=== PATIENT | female | born 1975 | race Caucasian/White ===

== ENCOUNTER 2016-10-09 | Outpatient (CLI) | payer OTHER | END 2016-10-09 13:49 | disposition critical access hospital (66) | CPT/HCPCS: A0425; A0429 ==

== ENCOUNTER 2016-10-09 14:02 | Inpatient (IN) | payer OTHER ==
--- NOTE | 2016-10-09 14:23 | ED Physician Documentation ---
PD HPI LOWER EXT INJURY - Stated complaint Stated Complaint: R LEG PX - Chief complaint Chief Complaint: Trauma Ext - History obtained from History obtained from: Patient - History of Present Illness PD HPI LOW EXT INJURY LOCATION: Right, Lower leg Type of injury: Fall (running on floor with socks and slipped, falling forward and struck/twisted right lower leg. Pain and swelling of it. Unable to move leg nor attempt to stand.) Where injury occurred: Home Timing - onset: Today (just SOFT HAT BINDER) Timing - duration: Hours (1) Timing - details: Abrupt onset, Still present Improved by: Rest, Immobilization (splinted on the way) Worsened by: Moving, Palpating Associated symptoms: Swelling. No: Weakness, Numbness Similar symptoms before: Has not had sx before Recently seen: Not recently seen Review of Systems Constitutional: denies: Fever, Chills Throat: denies: Sore throat Cardiac: denies: Chest pain / pressure Respiratory: denies: Dyspnea, Cough GI: denies: Nausea, Vomiting, Diarrhea Skin: denies: Abrasion (s), Laceration (s) Neurologic: denies: Headache, Head injury Psychiatric: denies: Anxiety Endocrine: denies: Weight loss, Easy bruising / bleeding Immunocompromised: denies: Immunocompromised PD PAST MEDICAL HISTORY - Past Medical History Cardiovascular: None Respiratory: None Neuro: None Endocrine/Autoimmune: None - Present Medications Home Medications: Ambulatory Orders Medication Instructions Recorded Confirmed Naproxen Sodium 0 mg PO DAILY 10/09/16 10/09/16 Venlafaxine HCl [Effexor Xr] 75 mg PO DAILY 10/09/16 10/09/16 - Allergies Allergies/Adverse Reactions: Allergies Allergy/AdvReac Type Severity Reaction Status Date / Time No Known Drug Allergies Allergy Verified 10/09/16 14:12 PD ED PE NORMAL - Vitals Vital signs reviewed: Yes - General General: Alert and oriented X 3, Well developed/nourished, Other (seems comfortable enough initially and declined pain meds. ) - HEENT HEENT: Atraumatic - Neck Neck: No bony TTP - Cardiac Cardiac: RRR, No murmur - Respiratory Respiratory: Clear bilaterally - Abdomen Abdomen: Soft, Non tender - Derm Derm: Normal color, Warm and dry - Extremities Extremities: Other (right lower leg with swelling and marked tenderness mid shaft. Normal sensation in foot, color and cap refill. Able to wiggle toes okay. Other leg and both hands without tenderness. ) - Neuro Neuro: Alert and oriented X 3, No motor deficit, No sensory deficit, Normal speech Results - Vitals Vitals: Vital Signs - 24 hr 10/09/16 10/09/16 14:10 16:33 Temperature 36.7 C 36.5 C Heart Rate 90 95 Respiratory 16 17 Rate Blood Pressure 130/84 H 130/77 O2 Saturation 100 100 Oxygen O2 Source Room air - Rads (name of study) tib fib right Radiology: Prelim report reviewed, EMP read contemporaneously (midshaft tib/fib fractures. ) PD MEDICAL DECISION MAKING - ED course Complexity details: considered differential, d/w patient (She initially declined IV nor IM meds and just wanted PO. Starting for xray, slight movement was hurting and she agreed to IM meds. She still declined IV. ), d/w client relationship consultant (Dr. Parekh, who came to ED and splinted the patient. Will admit for surgery in AM. ) Departure - Departure Disposition: 66 [facility] DC/Xfer Clinical Impression: Fall from slip, trip, or stumble Qualifiers: Encounter type: initial encounter Qualified Code(s): W01.0XXA - Fall on same level from slipping, tripping and stumbling without subsequent striking against object, initial encounter Fracture of tibia with fibula, closed Qualifiers: Encounter type: initial encounter Laterality: right Qualified Code(s): S82.201A - Unspecified fracture of shaft of right tibia, initial encounter for closed fracture Discharge Date/Time: 10/09/16 17:28
[2016-10-09] MEDS ORDERED: HYDROcod/ACETAM 5/325 MG TABLET PO STA (14:34)
[2016-10-09] MEDS ORDERED: IBUPROFEN 600 MG TABLET PO STA (14:34)
[2016-10-09] MEDS ORDERED: IBUPROFEN 600 MG TABLET PO ONE (14:42)
[2016-10-09] MEDS ORDERED: HYDROcod/ACETAM 5/325 MG TABLET ONE (14:42)
[2016-10-09] MEDS ORDERED: HYDROmorphone 1 MG/ML SYRINGE IM STA (14:53)
[2016-10-09] MEDS ORDERED: ONDANSETRON ODT 4 MG TABLET TL STA (14:53)
[2016-10-09] MEDS ORDERED: HYDROmorphone 1 MG/ML SYRINGE ONE (15:20)
[2016-10-09] MEDS ORDERED: LIDOCAINE 2% 10 ML MDV ONE (15:33)
[2016-10-09] MEDS ORDERED: BUPIVACAINE 0.5% PF 30 ML VIAL ONE (15:37)
[2016-10-09] MEDS ORDERED: ONDANSETRON ODT 4 MG TABLET ONE (15:50)
--- NOTE | 2016-10-09 16:30 | XRAY Preliminary Report ---
Exam: XR Tib/Fib RT IMPRESSION: Mildly displaced oblique shaft fractures of fibula and tibia, with minimal lateral angula tion of the distal aspect. [facility] SITE ID: [id number]
--- NOTE | 2016-10-09 16:31 | XRAY Report ---
EXAM: RIGHT TIBIA/FIBULA RADIOGRAPHY EXAM DATE: 10/09/2016 04:10 PM. CLINICAL HISTORY: Fall, with mid right tibial injury. COMPARISON: None. TECHNIQUE: 2 views. FINDINGS: Bones: Oblique mildly displaced proximal to mid fibular shaft fracture and mid to distal tibial shaft fracture , with minimal lateral angulation of the distal aspect. Joints: The visualized knee and ankle joints are normal. Soft Tissues: Detail limited by cast. IMPRESSION: Mildly displaced oblique shaft fractures of fibula and tibia, with minimal lateral angula tion of the distal aspect. [facility] Referring Provider Line: [phone] SITE ID: [id number]
[2016-10-09] MEDS ORDERED: ONDANSETRON 4 MG/2 ML VIAL IVP PRN (16:38)
--- NOTE | 2016-10-09 17:13 | HISTORY & PHYSICAL EXAMINATION ---
DATE OF ADMISSION: 10/09/2016 ADMITTING PHYSICIAN: Renzo Licea MD REASON FOR ADMISSION: Closed right tibia/fibula shaft fractures. HISTORY OF PRESENT ILLNESS: The patient is a 41-year-old female who was in stocking feet today in her home when she slipped on the floor and twisted her leg causing a fracture of her leg. She had severe pain and was brought to the emergency room after being unable to ambulate. She was found here to roly carter a fracture of her distal third tibia and middle of the shaft of the fibula. The patient has been sp linted for comfort and is admitted now for planned surgical treatment for 10/10/2016. PAST MEDICAL HISTORY: The patient's prior medical history remarkable for depression. MEDICATIONS: An antidepressant of which she does not remember the name. ALLERGIES: DENIED. SOCIAL HISTORY: The patient is . Her is deployed in the [employer] in [place] at this time. Renetta carter has a 14-year-old son. She drinks rare alcohol drinks, but does not smoke or use drugs. She is not presently working. PAST SURGICAL HISTORY: The patient's prior surgeries are none. She has had a previous vaginal deliver y of her son. REVIEW OF SYSTEMS: Noncontributory. PHYSICAL EXAMINATION: GENERAL: Reveals a 41-year-old female, lying supine on a gurney, who initially was very anxious and i n quite a bit of pain. HEAD AND NECK: Unremarkable. LUNGS: Clear. HEART: Regular rate. ABDOMEN: Soft and nontender. EXTREMITIES: Right lower extremity showed a deformity with the patella aimed directly anteriorly and the ankle turned 90 degrees in relation to this with bruising over the distal third of the tibia and early soft tissue swelling in that area. The fibula had tenderness over its midpoint. The patient had crepitus when her leg was actively or passively moved, and severe pain. Her foot neurovascular exam was intact. IMPRESSION: The patient has a closed tibia/fibula fracture. Plan was for proper imaging which require d that the patient have some pain relief before imaging and this was accomplished by using 7 mL of 1% lidocaine and 5 mL of 2% Marcaine with a hematoma block sterilely placed with an 18-gauge needle dir ectly into the fracture site. This allowed the patient's fracture to be reduced and splinted so that she could undergo x-rays which were obtained and reviewed with her. These show a short oblique fractu re of the tibia at the distal third and a long spiral fracture of the fibula at the center of the sha ft. PLAN: Now is for admission to the hospital for pain control, elevation, rest, and surgery planned for 10/10/2016, an intramedullary rodding of the right tibia which has been discussed in detail with the patient including potential risks and complications, as well as expected outcomes. JOB #: [id number] EXT JOB #:[id number]
[2016-10-09 17:20] LABS: BASOPHILS # (AUTO) 0.1 10^3/uL (0.0-0.1); BASOPHILS % (AUTO) 0.5 %; EOSINOPHILS % (AUTO) 0.1 %; HCT - HEMATOCRIT 36.9 % (37.0-47.0); HGB - HEMOGLOBIN 11.4 g/dL (12.0-16.0); LYMPHOCYTES # (AUTO) 1.6 10^3/uL (1.5-3.5); MEAN CORPUSCULAR HEMOGLOBIN 24.3 pg (27.0-31.0); MEAN CORPUSCULAR HGB CONC 30.9 g/dL (32.0-36.0); MEAN CORPUSCULAR VOLUME 78.4 fL (81.0-99.0); MEAN PLATELET VOLUME 8.2 fL (7.9-10.8); MONOCYTES % (AUTO) 6.2 %; NEUTROPHILS # (AUTO) 13.3 10^3/uL (1.5-6.6); NEUTROPHILS % (AUTO) 83.2 %; RED BLOOD COUNT 4.71 10^6/uL (4.20-5.40); RED CELL DISTRIBUTION WIDTH 16.4 % (12.0-15.0)
[2016-10-09 17:29] LABS: CALCIUM 9.2 mg/dL (8.5-10.3); CREATININE 0.6 mg/dL (0.4-1.0); POTASSIUM 3.6 mmol/L (3.5-5.0)
[2016-10-09 18:29] LABS: HCG UR QUAL NEGATIVE
[2016-10-09] MEDS: LACTATED RINGERS 1,000 ML IV SCH (19:03)
[2016-10-09] MEDS: MORPHINE 2 MG/ML SYRINGE IVP PRN ×2 (20:44→22:45)
[2016-10-09] MEDS: SODIUM CHLORIDE FLUSH 0.9% 10 ML SYRINGE IVP SCH (20:45)
[2016-10-09] MEDS: diazePAM 5 MG TABLET PO PRN (20:46)
[2016-10-10] MEDS: MORPHINE 2 MG/ML SYRINGE IVP PRN ×6 (00:41→13:47)
[2016-10-10] MEDS: LACTATED RINGERS 1,000 ML IV SCH ×3 (04:46→13:52)
[2016-10-10] MEDS: SODIUM CHLORIDE FLUSH 0.9% 10 ML SYRINGE IVP SCH ×3 (05:47→21:19)
[2016-10-10] MEDS: diazePAM 5 MG TABLET PO PRN ×2 (05:48→13:08)
[2016-10-10] MEDS ORDERED: VENLAFAXINE ER 75 MG CAPSULE PO SCH (09:00)
[2016-10-10] MEDS ORDERED: VENLAFAXINE HCL 75 MG PO SCH (09:00)
[2016-10-10] MEDS ORDERED: BUPIVACAINE 0.25%-EPI 1:200000 PF 30 ML VIAL SUBQ ONE ×2 (15:26→16:54)
[2016-10-10] MEDS ORDERED: LACTATED RINGERS 1,000 ML IV ONE ×2 (15:52→17:35)
[2016-10-10] MEDS ORDERED: ACETAMINOPHEN 1,000 MG/100 ML VIAL IV ONE (16:00)
[2016-10-10] MEDS ORDERED: PROPOFOL 200 MG/20 ML VIAL IVP ONE (16:00)
[2016-10-10] MEDS ORDERED: fentaNYL 250 MCG/5 ML VIAL IVP ONE (16:00)
[2016-10-10] MEDS ORDERED: BUPIVACAINE 0.5%-EPI 1:200000 PF 30 ML VIAL SUBQ ONE (16:00)
[2016-10-10] MEDS ORDERED: SODIUM CHLORIDE 0.9% 10 ML VIAL IV ONE (16:00)
[2016-10-10] MEDS ORDERED: ONDANSETRON 4 MG/2 ML VIAL IVP ONE (16:00)
[2016-10-10] MEDS ORDERED: MIDAZOLAM 2 MG/2 ML VIAL IVP ONE (16:00)
[2016-10-10] MEDS ORDERED: KETOROLAC 30 MG/ML VIAL IVP ONE (16:00)
[2016-10-10] MEDS ORDERED: LIDOCAINE-MPF 2% 5 ML VIAL IM ONE (16:00)
[2016-10-10] MEDS ORDERED: DEXAMETHASONE 4 MG/ML VIAL IVP ONE (16:00)
--- NOTE | 2016-10-10 17:10 | PROVIDER PROGRESS NOTE ---
Surgery Post-Op - General Admit Date: 10/09/16 Procedure Date: 10/10/16 Pre-Op Diagnosis: right tibia shaft fracture, fibula fracture Operative Procedure: right tibia IM rodding with interlock. percutaneous screw fixation of distal tibia fracture Post-Op Diagnosis: closed tibia fibula fracture and non-displaced distal tibia fracture- intraarticular - Procedure Note Anesthesia Technique: Primary Surgeon: pierre Complications: none
[2016-10-10] MEDS ORDERED: ACETAMINOPHEN 325 MG TABLET PO PRN (17:11)
[2016-10-10] MEDS ORDERED: SODIUM CHLORIDE FLUSH 0.9% 10 ML SYRINGE IVP PRN (17:11)
[2016-10-10] MEDS ORDERED: ONDANSETRON 4 MG/2 ML VIAL IVP PRN (17:11)
[2016-10-10] MEDS: HYDROmorphone 1 MG/ML SYRINGE IVP PRN ×2 (17:25→21:14)
--- NOTE | 2016-10-10 17:35 | XRAY Preliminary Report ---
Exam: XR Tib/Fib RT IMPRESSION: 1. Status post ORIF of a distal right tibia spiral fracture. Anatomic alignment achieved. 2. Redemonstration of a spiral fracture of the proximal right fibula diaphysis. [facility] SITE ID: [id number]
[2016-10-10] MEDS ORDERED: LACTATED RINGERS 1,000 ML IV SCH (18:00)
[2016-10-10] MEDS: oxyCOD/ACETAMIN 5 MG/325 MG TABLET PO PRN (18:54)
--- NOTE | 2016-10-10 19:15 | XRAY Report ---
EXAM: RIGHT TIBIA/FIBULA RADIOGRAPHY EXAM DATE: 10/10/2016 05:12 PM. CLINICAL HISTORY: Tibial rodding, right. COMPARISON: 10/09/2016. TECHNIQUE: 2 views. FINDINGS: 4 images acquired. 1 minute and 20 seconds of fluoroscopic imaging time. New intramedullary deena and screw fixation of a spiral fracture of the distal right tibia. Anatomic al ignment achieved. Two additional screws are noted in the distal right tibia metaphysis and epiphysis. No surgical intervention of a spiral fracture of the proximal right fibula diaphysis. IMPRESSION: 1. Status post ORIF of a distal right tibia spiral fracture. Anatomic alignment achieved. 2. Redemonstration of a spiral fracture of the proximal right fibula diaphysis. [facility] Referring Provider Line: [phone] SITE ID: [id number]
[2016-10-10] MEDS: ASPIRIN 325 MG TABLET PO SCH (21:14)
[2016-10-10] MEDS ORDERED: SODIUM CHLORIDE FLUSH 0.9% 10 ML SYRINGE IVP SCH (22:00)
[2016-10-10] MEDS: ceFAZolin 2 GM/50 ML 50 ML IV SCH (23:54)
[2016-10-10] MEDS: VENLAFAXINE ER 75 MG CAPSULE PO SCH (23:54)
[2016-10-11] MEDS: oxyCOD/ACETAMIN 5 MG/325 MG TABLET PO PRN ×6 (00:02→22:09)
[2016-10-11] MEDS: LACTATED RINGERS 1,000 ML IV SCH ×2 (00:02→12:48)
--- NOTE | 2016-10-11 04:11 | OPERATIVE REPORT ---
DATE OF SURGERY: 10/10/2016 00:00:00 PREOPERATIVE DIAGNOSIS: Right tibia and fibula closed fractures and a distal intraarticular tibia fr acture. POSTOPERATIVE DIAGNOSIS: NAME OF PROCEDURE: Right leg tibia intramedullary nailing with interlock screws and a separate percu taneous screw fixation of a distal tibia intraarticular fracture. SURGEON: Renzo Licea MD ANESTHESIA: General with femoral nerve block. INDICATIONS FOR SURGERY: The patient is a 41-year-old female who slipped and fell in her home on 03/2017, and was admitted through the emergency room with a displaced and unstable tibia-fibula fractu re. Presurgery and at surgery on a large screen, it was identified that there was a nondisplaced frac ture lined into the ankle joint and this altered the surgery plan slightly. DESCRIPTION OF OPERATIVE PROCEDURE: The patient was taken to the operating room, given a general anes thetic and femoral nerve block. She was positioned supine. A tourniquet was placed on the thigh. Her knee and leg were sterilely prepped and draped in the standard fashion. The distal tibial intraarticu lar fracture was identified presurgery and the surgery plan altered somewhat with placement of a perc utaneous screw from anterior to posterior, just above the joint line to ensure that this fracture did not displace with intramedullary rodding, and this was successful, and the screw placement confirmed by C-arm images after which a triangle was placed under the knee and we proceeded to an incision ove r the anteromedial aspect of the knee and a dissection down to the tibial starting point for placemen t of a guide pin followed by creation of an intramedullary hole with a drill and then an awl, and rose marie cement of a ball tip guidewire down the tibia measuring a length of 33 mm. Reaming was taken up to 11 mm for a 10 mm nail. This nail was inserted down into the tibia, carefully controlling the fracture and passing in uneventfully. This did not displace the distal tibia fracture site. The nail, once sea biju, was stable, and the tibia stabilized. Interlocked screws were placed by a freehand technique dis tally and by using a drill guide proximally, and once interlocked, the limb was stable, aligned prope rly. Screws were set deep enough to not be protruding, and a cap was placed on the end of the deena. Th e deena used was a [employer] 33 x 10 mm with 2 interlock screws distal and proximal. At the conc lusion, the tourniquet was deflated. Wounds were irrigated. Closure was interrupted Vicryl subcutaneo us and césar in skin. A well-padded compressive splint over dressings was applied to the limb and t he patient was taken to recovery room in stable condition. ESTIMATED BLOOD LOSS: Minimal. COMPLICATIONS: None. SPONGE AND NEEDLE COUNTS: Correct. JOB #: [id number] EXT JOB #:[id number]
[2016-10-11] MEDS: SODIUM CHLORIDE FLUSH 0.9% 10 ML SYRINGE IVP SCH ×3 (08:29→14:57)
[2016-10-11] MEDS: ceFAZolin 2 GM/50 ML 50 ML IV SCH (08:33)
[2016-10-11] MEDS: ASPIRIN 325 MG TABLET PO SCH ×2 (08:33→21:41)
[2016-10-11] MEDS: VENLAFAXINE ER 75 MG CAPSULE PO SCH (08:36)
--- NOTE | 2016-10-11 08:41 | PROVIDER PROGRESS NOTE ---
Subjective - General Admit Date: 10/09/16 Procedure Date: 10/10/16 Post Op Days: 1 Procedure Performed: IM rodding right tibia - Review of Systems Wound/Incisions: positive: Drainage Musculoskeletal: positive: Leg pain Objective - Patient Data Reviewed Vital Signs: Yes Vital Signs: Vital Signs x48h Temp Pulse Resp BP Pulse Ox 10/11/16 07:24 37.1 C 96 16 122/75 99 10/11/16 05:17 37.3 C 84 16 142/82 H 97 Intake & Output: Intake and Output Totals x24h 10/09/16 10/10/16 10/11/16 23:59 23:59 23:59 Intake Total 200 1822 950 Output Total 500 2425 700 Balance -300 -603 250 - Lab Results Lab Results: 10/09/16 17:15 10/09/16 17:15 - Imaging Results Radiology Imaging: positive: EMP read indepedently - Current Medications Current Medications: Current Medications Generic Name Dose Route Start Last Admin Trade Name Freq PRN Reason Stop Dose Admin Aspirin 325 mg 10/10/16 21:00 10/11/16 08:33 Reina PO 325 mg BID VY Administration Diazepam 5 mg 10/09/16 17:28 10/10/16 13:08 Valium PO 5 mg Q6H PRN Administration SPASMS Hydromorphone HCl 1 mg 10/10/16 17:11 10/10/16 21:14 Dilaudid Inj IVP 1 mg Q2HR PRN Administration Breakthrough Pain Lactated Ringer's 1,000 mls @ 100 mls/hr 10/09/16 17:00 10/11/16 00:02 Lr IV 100 mls/hr .Q10H VY Administration Morphine Sulfate 2 mg 10/09/16 17:29 10/10/16 13:47 Morphine IVP 2 mg Q2H PRN Administration PAIN Oxycodone/Acetaminophen 1 tab 10/10/16 17:11 10/11/16 05:16 Percocet 5 Mg/325 Mg PO 1 tab Q4HR PRN Administration PAIN Sodium Chloride 10 ml 10/09/16 22:00 10/11/16 08:29 Normal Saline Flush 0.9% IVP Not Given Q8HR VY Venlafaxine HCl 75 mg 10/10/16 23:45 10/11/16 08:36 Effexor Er PO Not Given DAILY VY - Physical Exam Wound/Incisions: positive: Drainage (serosang. dressing drainage) General Appearance: positive: No acute distress Neurologic/Psychiatric: positive: Motor nml, Sensation nml, Mood/affect nml Impression/Plan - Problem List Problem List: POD #1 Pt has much less pain than pre-surgery drainage expected, will change outer dressing later today PT to begin today Will check xray prior to PT. ]
[2016-10-11] MEDS: HYDROmorphone 1 MG/ML SYRINGE IVP PRN ×3 (09:07→19:46)
--- NOTE | 2016-10-11 09:45 | XRAY Report ---
C-[facility] SERVICES: 10/10/2016 Fluoroscopy time only, no images submitted for interpretation. Fluoroscopy time 1 minutes, 20 seconds. JERD
--- NOTE | 2016-10-11 09:53 | XRAY Report ---
TWO VIEW RIGHT TIBIA: 10/11/2016 CLINICAL INDICATION: Postop fracture fixation. FINDINGS: Frontal and lateral views of the right lower leg are compared to preoperative films of 03/2017. There has been interval intramedullary deena placement in the tibia, with two proximal and one distal l ocking screws in place. Additionally, there is cortical screw fixation of a distal tibial fracture, n ot previously demonstrated. Oblique proximal fibular fracture is again noted. Alignment of the tibia is near anatomic. IMPRESSION: POSTOPERATIVE CHANGES OF TIBIAL SHAFT AND DISTAL TIBIAL FRACTURE FIXATIONS. STABLE APPEA MARCELLE OF FIBULAR FRACTURE. JOB #: [id number] EXT JOB #:[id number]
[2016-10-11] MEDS: diazePAM 5 MG TABLET PO PRN (18:55)
[2016-10-11] MEDS ORDERED: VENLAFAXINE ER 75 MG CAPSULE PO SCH (21:00)
[2016-10-11] MEDS: MORPHINE 2 MG/ML SYRINGE IVP PRN (21:34)
[2016-10-11] MEDS: KETOROLAC 30 MG/ML VIAL IVP PRN (22:14)
[2016-10-12] MEDS ORDERED: SENNA 8.6 MG TABLET ONE (00:17)
[2016-10-12] MEDS: HYDROmorphone 1 MG/ML SYRINGE IVP PRN ×2 (00:18→10:52)
[2016-10-12] MEDS: SENNA 8.6 MG TABLET PO SCH ×3 (00:19→08:23)
[2016-10-12] MEDS: SODIUM CHLORIDE FLUSH 0.9% 10 ML SYRINGE IVP PRN ×2 (00:20→11:30)
[2016-10-12] MEDS: oxyCOD/ACETAMIN 5 MG/325 MG TABLET PO PRN ×2 (03:53→11:30)
[2016-10-12] MEDS: LACTATED RINGERS 1,000 ML IV SCH (05:13)
[2016-10-12] MEDS: SODIUM CHLORIDE FLUSH 0.9% 10 ML SYRINGE IVP SCH ×2 (05:59→10:45)
[2016-10-12] MEDS: KETOROLAC 30 MG/ML VIAL IVP PRN ×2 (05:59→11:29)
[2016-10-12] MEDS: diazePAM 5 MG TABLET PO PRN ×2 (06:38→11:30)
--- NOTE | 2016-10-12 08:14 | Discharge Plan ---
Discharge Plan Disposition: Home, Self Care Condition: Good Prescriptions: oxyCODONE/ACET 5/325 [Percocet 5 mg/325 mg] 2 tab PO Q4HR PRN #30 tablet PRN Reason: Pain Aspirin [Reina] 325 mg PO BID #60 tablet Senna [Senokot] 8.6 - 34.4 mg PO TID #30 tablet diazePAM [Valium] 5 mg PO Q6H PRN #30 tablet PRN Reason: SPASMS Walker 1 each MC ONCE #1 each Diet: Regular Activity Restrictions: Additional Comments (toe touch weight bearing only right LE) Shower Restrictions: Yes (keep leg dry) Driving Restrictions: Yes (no driving) Weight Bearing: Toe Touch Additional Instructions or Follow Up instructions: Office F/U next week () No Smoking: If you smoke, Please STOP! Call for help. Follow-up with: Renzo Licea MD [Provider Admit Priv/Credential] -
[2016-10-12] MEDS: ASPIRIN 325 MG TABLET PO SCH (08:23)
[2016-10-12] MEDS ORDERED: DOCUSATE SODIUM 250 MG CAPSULE PO SCH (09:00)
[2016-10-12 12:47] VITALS: BP 115/80
--- NOTE | 2016-10-19 16:40 | DISCHARGE SUMMARY ---
DATE OF ADMISSION: 10/09/2016 DATE OF DISCHARGE: 10/12/2016 OPERATIVE PROCEDURE: 10/09/2016, a right tibia interlocked intramedullary rodding and percutaneous fi xation of a distal tibial fracture. REASON FOR ADMISSION: The patient is a 41-year-old female who sustained a slip and fall incident in h er home on the date of admission 10/09/2016 and was seen in the emergency room with a displaced minim ally comminuted fracture of the tibia and fibula with gross angular foot deformity. The patient was i n quite a bit of pain at admission and underwent a block of her fracture site and a closed reduction. The patient's prior medical history is delineated in her admission note. HOSPITAL COURSE: The patient was admitted after a closed reduction and splinting. The following day o n 10/10/2016, the patient underwent an open reduction internal fixation of her limb utilizing an inte rlocked deena. In the postoperative period, the patient returned to the hospital floor and was observed for swelling and receiving pain medicine, IV antibiotics, and ultimately also physical therapy with mobilization utilizing a walker, nonweightbearing on her limb. The patient did well and at the point of discharge she was comfortable on oral medications and not having any swelling or wound complicatio ns. She had a Cam boot applied to her ankle for stabilization of her ankle fracture. Dressings were l eft on her incision sites about the knee and the ankle. She was discharged to home. She was prescrib ed diazepam and laxatives, oxycodone and aspirin. The patient was to be seen in my office within 3-5 days and was to remain nonweightbearing. JOB #: [id number] EXT JOB #:[id number]
== END 2016-10-12 13:30 | disposition home or self-care (01) | DRG 494 ==
LOC: ED 14:02 → MS 16:34
PROVIDERS: ADMIT Orthopaedic Surgery; ATTEND Orthopaedic Surgery
PROC: 0QSG06Z Reposition Right Tibia with Intramedullary Internal Fixation Device, Open Approach (ICD-10-PCS; principal; 2016-10-10 13:45)
PROC: 0QSG34Z Reposition Right Tibia with Internal Fixation Device, Percutaneous Approach (ICD-10-PCS; principal; 2016-10-10 13:45)
DX: S82.231A Displaced oblique fracture of shaft of right tibia, initial encounter for closed fracture (principal); S82.391A Other fracture of lower end of right tibia, initial encounter for closed fracture; S82.431A Displaced oblique fracture of shaft of right fibula, initial encounter for closed fracture; K21.9 Gastro-esophageal reflux disease without esophagitis; F32.9 Major depressive disorder, single episode, unspecified; W01.0XXA Fall on same level from slipping, tripping and stumbling without subsequent striking against object, initial encounter; Y92.009 Unspecified place in unspecified non-institutional (private) residence as the place of occurrence of the external cause
CPT/HCPCS: 27750; 80048; 81025; 85025; 96372; 99284; 99285

== ENCOUNTER 2016-11-08 13:38 | Outpatient (CLI) | payer OTHER | END 2016-11-08 13:39 | disposition home or self-care (01) | DX: S89.191D Other physeal fracture of lower end of right tibia, subsequent encounter for fracture with routine healing (principal) ==

== ENCOUNTER 2023-08-18 09:34 | Emergency (ER) | payer OTHER ==
[2023-08-18 09:57] VITALS: O2SAT 100
[2023-08-18 10:23] LABS: BILIRUBIN,URINE NEGATIVE (NEGATIVE); GLUCOSE, URINE (UA) NEGATIVE (NEGATIVE); KETONES,URINE (UA) NEGATIVE (NEGATIVE); LEUKOCYTE ESTERASE, URINE LARGE (NEGATIVE); NITRITE,URINE POSITIVE (NEGATIVE); OCCULT BLOOD,URINE LARGE (NEGATIVE); PROTEIN,URINE 100 mg/dL (NEGATIVE); UROBILINOGEN,URINE 0.2 (NORMAL) E.U./dL (NORMAL)
[2023-08-18 10:25] LABS: CLARITY,URINE SL. CLOUDY (CLEAR)
[2023-08-18 10:31] LABS: BACTERIA,URINE Few /HPF (None Seen); RBC,URINE TNTC /HPF (0-5); SQUAMOUS EPITHELIAL CELL,UR FEW Squamous (<= Few)
--- NOTE | 2023-08-18 10:40 | ED Physician Documentation ---
PD HPI FEMALE - Stated complaint Stated Complaint: - Chief complaint Chief Complaint: UTI - History obtained from History obtained from: Patient - History of Present Illness Timing - onset: Yesterday Timing - details: Abrupt onset, Still present Associated symptoms: Dysuria, Urinary frequency. No: Hematuria Similar symptoms before: Diagnosis (UTIs) Review of Systems Constitutional: denies: Fever, Chills GI: denies: Nausea, Vomiting Musculoskeletal: reports: Back pain (mild right low back pain today) PD PAST MEDICAL HISTORY - Past Medical History Past Medical History: Yes Cardiovascular: None Respiratory: None Neuro: Migraines Endocrine/Autoimmune: None GI: None FRAME BANDER: None : None HEENT: None Psych: Depression Musculoskeletal: Fibromyalgia Derm: Other - Past Surgical History Past Surgical History: Yes /FRAME BANDER: Hysterectomy, Oophrectomy - Present Medications Home Medications: Ambulatory Orders Medication Instructions Recorded Confirmed Naproxen 500 mg PO BID #14 tab 08/18/23 Phenazopyridine HCl [Pyridium] 100 mg PO TID PRN #15 tablet 08/18/23 Progesterone, Micronized 200 mg ORAL HS 08/18/23 08/18/23 [Prometrium] cephALEXin [Keflex] 500 mg PO TID #20 cap 08/18/23 estradioL [Estradiol (Twice 1 each TD ONCE 08/18/23 08/18/23 Weekly)] - Allergies Allergies/Adverse Reactions: Allergies Allergy/AdvReac Type Severity Reaction Status Date / Time No Known Drug Allergies Allergy Verified 08/18/23 09:43 - Social History Does the pt smoke?: No Smoking Status: Never smoker Does the pt drink ETOH?: Yes Does the pt have substance abuse?: No - Immunizations Immunizations are current?: Yes PD ED PE NORMAL - Vitals Vital signs reviewed: Yes - General General: Alert and oriented X 3, Well developed/nourished - Derm Derm: Normal color, Warm and dry - Neuro Neuro: Alert and oriented X 3, Normal speech Results - Vitals Vitals: Vital Signs - 24 hr 08/18/23 08/18/23 09:45 11:32 Temperature 36.8 C 98.5 C H Heart Rate 80 72 Respiratory 16 74 H Rate Blood Pressure 121/74 131/82 H O2 Saturation 100 100 Oxygen O2 Source Room air - Labs Labs: Laboratory Tests 08/18/23 10:15 Urine Color STRAW Urine Clarity SL. CLOUDY Urine pH 6.0 Ur Specific Keiser 1.020 Urine Protein 100 H Urine Glucose (UA) NEGATIVE Urine Ketones NEGATIVE Urine Occult Blood LARGE H Urine Nitrite POSITIVE H Urine Bilirubin NEGATIVE Urine Urobilinogen 0.2 (NORMAL) Ur Leukocyte Esterase LARGE H Urine RBC TNTC H Urine WBC 11-25 H Ur Squamous Epith Cells FEW Squamous Urine Bacteria Few Ur Microscopic Review INDICATED Urine Culture Comments INDICATED PD Medical Decision Making - ED course Complexity details: considered differential (The patient is describing UTI symptoms and her urine sample shows findings consistent with UTI. Will treat for this. Has mild low back pain today. No fevers no nausea.), d/w patient Departure - Departure Disposition: Home, Self Care Clinical Impression: UTI (urinary tract infection), Dysuria Condition: Stable Record reviewed to determine appropriate education?: Yes Instructions: ED UTI Cystitis Female Prescriptions: cephALEXin [Keflex] 500 mg PO TID #20 cap Naproxen 500 mg PO BID #14 tab Phenazopyridine HCl [Pyridium] 100 mg PO TID PRN #15 tablet PRN Reason: Abdominal Pain Comments: Your urine sample does look consistent with a bladder infection and corroborates your symptoms. We can treat this with cephalexin antibiotic along with medications to help with the symptoms initially of phenazopyridine and naproxen anti-inflammatory. Stay well-hydrated. I would anticipate improvement over the next 2 to 3 days. We will do a urine culture on this. This will result in 1 or 2 days and we will call you if we need to amend the antibiotic choice based on that. Follow-up if you are not improved well over the next several days and return if worse. I sent your prescriptions to [facility] pharmacy. Discharge Date/Time: 08/18/23 11:38
[2023-08-18] MEDS ORDERED: cephALEXin 250 MG CAPSULE PO STA (11:12)
[2023-08-18] MEDS ORDERED: PHENAZOPYRIDINE 100 MG TABLET PO STA (11:13)
[2023-08-18] MEDS ORDERED: NAPROXEN 250 MG TABLET PO STA (11:13)
[2023-08-18 11:38] VITALS: BP 131/82
== END 2023-08-18 11:38 | disposition home or self-care (01) ==
LOC: ED 09:34
DX: N39.0 Urinary tract infection, site not specified (principal); B96.20 Unspecified Escherichia coli [E. coli] as the cause of diseases classified elsewhere
CPT/HCPCS: 81001; 87086; 87181; 99283; A9270; 81003